=== PATIENT | female | born 2000 | race Caucasian/White ===

== ENCOUNTER 2024-01-27 16:18 | Outpatient (CLI) | payer OTHER, SELFPAY | END 2024-01-27 16:19 | disposition home or self-care (01) | PROVIDERS: Visit Provider Family Medicine | DX: O26.893 Other specified pregnancy related conditions, third trimester (principal); S29.9XXA Unspecified injury of thorax, initial encounter; W01.0XXA Fall on same level from slipping, tripping and stumbling without subsequent striking against object, initial encounter; Y92.009 Unspecified place in unspecified non-institutional (private) residence as the place of occurrence of the external cause; Z3A.33 33 weeks gestation of pregnancy | CPT/HCPCS: A0998 ==

== ENCOUNTER 2024-01-27 16:18 | Outpatient (CLI) | payer OTHER, SELFPAY | END 2024-01-27 16:19 | disposition home or self-care (01) | LOC: AMB 02-22 23:43 | PROVIDERS: Visit Provider Family Medicine | DX: O26.893 Other specified pregnancy related conditions, third trimester (principal); S29.9XXA Unspecified injury of thorax, initial encounter; W01.0XXA Fall on same level from slipping, tripping and stumbling without subsequent striking against object, initial encounter; Y93.89 Activity, other specified; Y92.007 Garden or yard of unspecified non-institutional (private) residence as the place of occurrence of the external cause; Z3A.33 33 weeks gestation of pregnancy | CPT/HCPCS: A0998 ==